=== PATIENT | female | born 1960 | race Caucasian/White ===

== ENCOUNTER 2017-01-04 20:04 | Emergency (ER) | payer BC ==
[2017-01-04 20:11] VITALS: BP 157/64
[2017-01-04] MEDS ORDERED: Penicillin VK TAB* 250 MG PO ONE (20:25)
--- NOTE | 2017-01-04 20:34 | UC ---
[facility] HPI - HPI Summary HPI Summary: 56 yo female with right cheek swelling and pain that started this AM no f/c has a bad right upper tooth pain is relieved with advil - History of Current Complaint Chief Complaint: UCDentalProblem Stated Complaint: TOOTH PAIN RT Time Seen by Provider: 01/04/17 20:13 Hx Obtained From: Patient Hx Last Menstrual Period: 3-4 yrs Onset/Duration: Gradual Onset, Lasting Hours Severity: Moderate Pain Intensity: 4 Pain Scale Used: 0-10 Numeric Aggravating Factor(s): Heat, Cold, Chewing Alleviating Factor(s): OTC Meds Related History: Swelling - Allergies/Home Medications Allergies/Adverse Reactions: Allergies Allergy/AdvReac Type Severity Reaction Status Date / Time Codeine AdvReac Intermediate Nausea Verified 01/04/17 20:11 PMH/Surg Hx/FS Hx/Imm Hx Previously Healthy: Yes - Surgical History Surgical History: Yes Surgery Procedure, Year, and Place: tubal ligation. ectopic - Family History Known Family History: Positive: Hypertension - Social History Alcohol Use: Occasionally Substance Use Type: None Smoking Status (MU): Light Every Day Tobacco Smoker Type: Cigarettes Amount Used/How Often: 1/4 ppd Review of Systems Constitutional: Negative Skin: Negative Eyes: Negative ENT: Dental Pain Respiratory: Negative Cardiovascular: Negative Gastrointestinal: Negative Genitourinary: Negative Motor: Negative Neurovascular: Negative Musculoskeletal: Negative Neurological: Negative Psychological: Negative Is Patient Immunocompromised?: No All Other Systems Reviewed And Are Negative: Yes Physical Exam Triage Information Reviewed: Yes Appearance: Well-Appearing, No Pain Distress, Well-Nourished Vital Signs: Initial Vital Signs Temp 98.4 F 01/04/17 20:08 Pulse 78 01/04/17 20:08 Resp 18 01/04/17 20:08 BP 157/64 01/04/17 20:08 Pulse Ox 99 01/04/17 20:08 Eyes: Positive: Conjunctiva Clear ENT: Positive: Hearing grossly normal, TMs normal. Negative: Nasal congestion, Nasal drainage, Tonsillar exudate, Trismus, Muffled/hoarse voice Dental: Positive: Gross Decay/Caries @, Other: - absymal dentition Respiratory: Positive: Lungs clear, Normal breath sounds, No respiratory distress, No accessory muscle use Cardiovascular: Positive: RRR, No Murmur Musculoskeletal: Positive: ROM Intact, No Edema Neurological: Positive: Alert Psychological Exam: Normal Skin Exam: Normal Dental Complaint Course/Dx - Differential Dx/Diagnosis Provider Diagnoses: dental abscess Discharge - Discharge Plan Condition: Stable Disposition: HOME Prescriptions: Penicillin VK 500 MG TAB(NF) [Penicillin VK 500 mg Tab] 500 mg PO QID #28 tab Patient Education Materials: Dental Abscess (ED) Referrals: Alireza Rudolph MD [Primary Care Provider] - Additional Instructions: continue advil warm compresses recheck for new or worsening symptoms you need to have this addressed by a dentist try to get in as soon as possible Images Head: 1 - swollen/tender Dental: 1 - loose tooth/gum red/suspect apical abscess
== END 2017-01-04 20:45 | disposition home or self-care (01) ==
LOC: UCEAST 20:04
DX: K04.7 Periapical abscess without sinus (principal); F17.210 Nicotine dependence, cigarettes, uncomplicated
CPT/HCPCS: 99212; A9270-GY; G0463